=== PATIENT | female | born 1950 | race Caucasian/White ===

== ENCOUNTER 2020-03-24 08:23 | Emergency (ER) | payer OTHER, SELFPAY ==
[~2020-03-24] VITALS: Ht 149.9 cm; Wt 67.6 kg
[~2020-03-24 08:23] MED LIST: ASPI-1822 PO; ATOR20TA PO; LEVO0.0841 PO; PANT40EC PO
[2020-03-24 08:32] VITALS: BP 170/66
[2020-03-24] MEDS ORDERED: ASPIRIN 325 MG TAB PO STA (08:50)
[2020-03-24] MEDS ORDERED: MORPHINE SULFATE 4 MG/ML SYR IVP STA (08:50)
[2020-03-24] MEDS ORDERED: ONDANSETRON 4 MG/2 ML VIAL IVP STA (08:50)
[2020-03-24 09:37] LABS: BASOPHILS % (AUTO) 0.2 % (0.0-2.0); EOSINOPHILS % (AUTO) 0.6 % (0.0-4.0); HEMATOCRIT 40.9 % (36-48); HEMOGLOBIN 13.8 g/dL (12.0-16.0); LYMPHOCYTES # (AUTO) 1.3 K/uL (2.5-16.5); LYMPHOCYTES % (AUTO) 21.2 % (20.5-51.1); MEAN CORPUSCULAR HEMOGLOBIN 32 pg (27-31); MEAN CORPUSCULAR HGB CONC 34 g/dL (33-37); MEAN CORPUSCULAR VOLUME 95.8 fL (80-94); MONOCYTES # (AUTO) 0.6 K/uL (0.8-1.0); MONOCYTES % (AUTO) 10.5 % (1.7-9.3); NEUTROPHILS % (AUTO) 67.5 % (42.2-75.2); PLATELET COUNT (AUTO) 337 K/uL (140-450); RED BLOOD CELL COUNT(AUTO) 4.27 MIL/uL (4.20-5.40); RED CELL DISTRIBUTION WIDTH 12.4 % (11.6-13.7); WHITE BLOOD COUNT (AUTO) 5.9 K/uL (4.8-10.8)
[2020-03-24 10:03] LABS: ALBUMIN 3.3 g/dL (3.4-5.0); ANION GAP 13.4 (8-16); CARBON DIOXIDE 24.6 mmol/L (21-32); CREATININE 0.7 mg/dL (0.6-1.3); TOTAL BILIRUBIN 0.4 mg/dL (0.0-1.0)
[2020-03-24 11:54] VITALS: BP 140/70
== END 2020-03-24 11:54 | disposition home or self-care (01) ==
LOC: MED 08:23
DX: R07.1 Chest pain on breathing (principal); Z20.828 Contact with and (suspected) exposure to other viral communicable diseases; E03.9 Hypothyroidism, unspecified
CPT/HCPCS: 36415; 71045; 80053; 83880; 84484; 85025; 85379; 87804; 93005; 96374; 96375; 99285; J2270; J2405; Q0092; U0003

== ENCOUNTER 2020-04-13 19:15 | Emergency (ER) | payer OTHER, SELFPAY ==
[~2020-04-13] VITALS: Ht 149.9 cm; Wt 72.6 kg
[2020-04-13 19:22] VITALS: BP 182/88
--- NOTE | 2020-04-13 19:30 | NUR ---
ambulated to bed 5 with steady gait.
[2020-04-13] MEDS ORDERED: ONDANSETRON 4 MG ODT PO ONE (19:40)
--- NOTE | 2020-04-13 19:50 | NUR ---
69 year old female presents with feelings on nausea and sternal chest pain that is nonradiating x 1 day. denies any other s/sx. reports being tested for covid x 2 this month and results negative for both. pmhx: denies nka
[2020-04-13] MEDS ORDERED: KETOROLAC 60 MG/2 ML VIAL IM ONE (20:20)
[2020-04-13 20:26] VITALS: BP 182/88
[2020-04-13] MEDS ORDERED: IBUPROFEN 800 MG TAB PO ONE (20:40)
--- NOTE | 2020-04-13 21:10 | NUR ---
Patient discharged with v/s stable. Written and verbal after care instructions given and explained. Patient alert, oriented and verbalized understanding of instructions. Ambulatory with steady gait. All questions addressed prior to discharge. ID band removed. Patient advised to follow up with PMD. Rx of motrin and zofran given. Patient educated on indication of medication including possible reaction and side effects. Opportunity to ask questions provided and answered.
== END 2020-04-13 21:10 | disposition home or self-care (01) ==
LOC: MED 19:15
DX: R11.0 Nausea (principal); R07.9 Chest pain, unspecified; E07.9 Disorder of thyroid, unspecified; Z79.899 Other long term (current) drug therapy; Z79.82 Long term (current) use of aspirin
CPT/HCPCS: 81002; 99283; Q0162; J1885